=== PATIENT | female | born 1970 | race Caucasian/White ===

== ENCOUNTER 2019-05-24 15:08 | Emergency (ER) | payer OTHER ==
[~2019-05-24] VITALS: Ht 149.9 cm; Wt 62.1 kg
[2019-05-24 15:16] VITALS: Ht 149.9 cm; Wt 62.1 kg
[2019-05-24 15:34] LABS: BASOPHIL % 1.1 % (0-2); RED CELL DISTRIBUTION WIDTH 14.4 % (11.5-14.5)
[2019-05-24 15:39] LABS: PLATELET COUNT 104 x10^3mcL (130-400)
[2019-05-24 15:46] LABS: CALCIUM 8.7 mg/dL (8.5-10.1); CARBON DIOXIDE 27.5 mmol/L (21-32); CHLORIDE SERUM 105 mmol/L (98-107); CREATININE SERUM 0.5 mg/dL (0.6-1.0); GFR1 > 60 mL/min; GLUCOSE SERUM 150 mg/dL (74-106); SODIUM SERUM 144 mmol/L (136-145)
[2019-05-24 16:05] LABS: ALBUMIN 3.7 g/dL (3.4-5.0); ALKALINE PHOSPHATASE 186 U/L (46-116); ALT/SGPT 32 U/L (14-59); AST/SGOT 98 U/L (15-37); TOTAL PROTEIN, SERUM 8.2 g/dL (6.4-8.2)
[2019-05-24 16:54] LABS: UA SPECIFIC GRAVITY 1.015 (1.005-1.035); microscopic required? YES; urine erythrocyte NEGATIVE (NEGATIVE)
[2019-05-24 18:27] VITALS: BP 121/57
== END 2019-05-24 18:27 | disposition home or self-care (01) ==
LOC: ED 15:08
PROVIDERS: Emergency Medicine
DX: K74.60 Unspecified cirrhosis of liver (principal); Z98.890 Other specified postprocedural states; Z90.711 Acquired absence of uterus with remaining cervical stump
CPT/HCPCS: 36415